=== PATIENT | male | born 1975 | race Hispanic/Latino ===

== ENCOUNTER 2023-02-20 20:51 | Emergency (ER) | payer SELFPAY ==
[2023-02-20] MEDS ORDERED: LIDOCAINE 1% MPF 5 ML VIAL ONE (21:55)
--- NOTE | 2023-02-20 22:02 | ER ---
Nurse's Notes [facility] Name: Davis Odom Age: 48 yrs Sex: Male : 1975 Arrival Date: 02/20/2023 Time: 20:52 Bed 9 Private MD: Diagnosis: Foreign body in stomach Presentation: 02/20 21:52 Chief complaint: Patient states: i was stabbed in the belly by a catfish and the barth vc1 is still stuck in my abdomen. Coronavirus screen: Client denies travel out of the [place] in the last 14 days. At this time, the client does not indicate any symptoms associated with coronavirus-19. Ebola Screen: No symptoms or risks identified at this time. Initial Sepsis Screen: Does the patient meet any 2 criteria? No. Patient's initial sepsis screen is negative. Does the patient have a suspected source of infection? No. Patient's initial sepsis screen is negative. Risk Assessment: Do you want to hurt yourself or someone else? Patient reports no desire to harm self or others. Onset of symptoms was February 20, 2023. 21:52 Method Of Arrival: Ambulatory vc1 21:52 Acuity: SWATHI 4 vc1 Triage Assessment: 21:54 General: Appears in no apparent distress. uncomfortable, Behavior is calm, cooperative. vc1 Pain: Complains of pain in abdomen. EENT: No deficits noted. No signs and/or symptoms were reported regarding the EENT system. Neuro: No deficits noted. Graf Agitation-Sedation Scale (RASS): 0 - Alert and Calm Level of Consciousness is awake, alert, obeys commands, Oriented to person, place, time, situation. Cardiovascular: No deficits noted. Denies chest pain, shortness of breath, Capillary refill < 3 seconds Clubbing of nail beds is absent Patient's skin is warm and dry. Respiratory: No deficits noted. Airway is patent Respiratory effort is even, unlabored, Respiratory pattern is regular, symmetrical. GI: Abdomen is round non-distended, obese. : No deficits noted. No signs and/or symptoms were reported regarding the genitourinary system. Derm: fish spike present in lower umbilical region. Musculoskeletal: No deficits noted. No signs and/or symptoms reported regarding the musculoskeletal system. Circulation, motion, and sensation intact. Range of motion: intact in all extremities. Historical: - Allergies: 21:54 No Known Allergies; vc1 - Home Meds: 21:54 None [Active]; vc1 - PMHx: 21:54 None; vc1 - PSHx: 21:54 None; vc1 - Immunization history:: Adult Immunizations up to date, Client reports having NOT received the Covid vaccine. Last tetanus immunization: unknown. - Social history:: Smoking status: Patient denies any tobacco usage or history of. Patient uses alcohol, occasionally. Screenin:[facility] ED Fall Risk Assessment (Adult) History of falling in the last 3 months, vc1 including since admission No falls in past 3 months (0 pts) Confusion or Disorientation No (0 pts) Intoxicated or Sedated No (0 pts) Impaired Gait No (0 pts) Mobility Assist Device Used No (0 pt) Altered Elimination No (0 pt) Score/Fall Risk Level 0 - 2 = Low Risk Oriented to surroundings, Maintained a safe environment, Educated pt \T\ family on fall prevention, incl call for assistance when getting out of bed. 23:12 Abuse screen: Denies threats or abuse. Nutritional screening: No deficits noted. vc1 Tuberculosis screening: No symptoms or risk factors identified. Vital Signs: 21:52 BP 146 / 101; Pulse 106; Resp 19; Temp 98.6(O); Pulse Ox 99% on R/A; Weight 95.25 kg vc1 (R); Height 5 ft. 6 in. (R); Pain 7/10; 22:30 BP 138 / 94; Pulse 89; Resp 19; Pulse Ox 98% ; vc1 21:52 Body Mass Index 33.89 (95.25 kg, 167.64 cm) vc1 21:52 Pain Scale: Adult vc1 ED Course: 20:52 Patient arrived in ED. [id number] 20:55 Krunal Villarreal MD is Attending Physician. bs3 21:40 CT Abd/Pelvis - Without Contrast In Process Unspecified. EDMS 21:54 Triage completed. vc1 21:54 Arm band placed on right wrist. vc1 23:14 No provider procedures requiring assistance completed. Patient did not have IV access vc1 during this emergency room visit. 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 Exp: vc1 04/28/2024. Lot #: [id number]. } Route: IM; Site: left deltoid; 23:00 Follow up: Response: (VIS) Vaccine information sheet provided today. Questions and/or vc1 concerns addressed. VIS edition date: Jun 28, 2021.; No adverse reaction 22:40 Drug: Ketorolac IM 15 mg Route: IM; Site: right deltoid; vc1 23:00 Follow up: Response: No adverse reaction; Marked relief of symptoms vc1 Medication: 23:14 Vaccine Information Statement (VIS) provided today. Questions and/or concerns vc1 addressed. VIS edition date: June 28, 2021. Outcome: 22:02 Discharge ordered by . bs3 23:14 Discharged to home ambulatory. vc1 23:14 Condition: good 23:14 Discharge instructions given to patient, Instructed on discharge instructions, follow up and referral plans. medication usage, Demonstrated understanding of instructions, follow-up care, medications, Prescriptions given X 1. 23:15 Patient left the ED. vc1 Signatures: Dispatcher [employer] EDNY Xochitl [id number] Kathia Angela, TEVIN RN vc1 Krunal Villarreal MD MD bs3
--- NOTE | 2023-02-20 22:03 | EDPHYS ---
Physician Documentation [facility] Name: Davis Odom Age: 48 yrs Sex: Male : 1975 Arrival Date: 02/20/2023 Time: 20:52 Bed 9 Private MD: ED Physician Krunal Villarreal HPI: 02/20 21:01 This 48 yrs old Male presents to ER via Unassigned with complaints of Foreign bs3 body lodged in abdomen. 21:01 48-year-old male presents with no foreign body to his abdomen he notes that he was bs3 fishing and a fishtail jabbed him in the abdomen he denies any other injuries it happened just prior to arrival he notes moderate discomfort at the area he did cut the tail he is not sure how far it and it went but he thinks it went pretty far. Historical: - Allergies: 21:54 No Known Allergies; vc1 - Home Meds: 21:54 None [Active]; vc1 - PMHx: 21:54 None; vc1 - PSHx: 21:54 None; vc1 - Immunization history:: Adult Immunizations up to date, Client reports having NOT received the Covid vaccine. Last tetanus immunization: unknown. - Social history:: Smoking status: Patient denies any tobacco usage or history of. Patient uses alcohol, occasionally. ROS: 21:01 Constitutional: Negative for fever, chills bs3 21:01 All other systems are negative. Exam: 21:01 Constitutional: This is a well developed, well nourished patient who is awake, alert, bs3 and in no acute distress. Head/Face: Normocephalic, atraumatic. Eyes: Pupils equal round and reactive to light, extra-ocular motions intact. Lids and lashes normal. Neck: Trachea midline, no thyromegaly, no neck stiffness Chest/axilla: Normal chest wall appearance and motion. Nontender with no deformity. No lesions are appreciated. Cardiovascular: Regular rate and rhythm with a normal S1 and S2. symmetric pulses in upper extremities Respiratory: Lungs have equal breath sounds bilaterally, clear to auscultation, no respiratory distress Abdomen/GI: There is a penetrating foreign body in between his pubic symphysis and his umbilicus there is moderate amount of erythema around it small amount of oozing from the wound Vital Signs: 21:52 BP 146 / 101; Pulse 106; Resp 19; Temp 98.6(O); Pulse Ox 99% on R/A; Weight 95.25 kg vc1 (R); Height 5 ft. 6 in. (R); Pain 7/10; 22:30 BP 138 / 94; Pulse 89; Resp 19; Pulse Ox 98% ; vc1 21:52 Body Mass Index 33.89 (95.25 kg, 167.64 cm) vc1 21:52 Pain Scale: Adult vc1 Procedures: 21:59 Foreign Body Removal: a fish bone, from the abdomen, by tweezers, Dressinx4s were bs3 used to dress the wound, The patient tolerated the removal well. MDM: 20:55 Patient medically screened. bs3 21:01 Differential diagnosis: Patient with foreign body will evaluate for penetration through bs3 the peritoneum we will treat pain update tetanus we will give prophylactic antibiotics. Data reviewed: vital signs, nurses notes. 21:59 ED course: CT notable for superficial foreign body in the abdomen the foreign body was bs3 removed without complication by myself tetanus updated will give antibiotic prophylaxis advised return precautions. 22:22 ED course: pt with 1.3cm cyst, advised outpatient f/u with pcp for non emergent mri. bs3 22:30 ED course: outpatient US recommended. 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 Exp: vc1 04/28/2024. Lot #: [id number]. } Route: IM; Site: left deltoid; 23:00 Follow up: Response: (VIS) Vaccine information sheet provided today. Questions and/or vc1 concerns addressed. VIS edition date: Jun 28, 2021.; No adverse reaction 22:40 Drug: Ketorolac IM 15 mg Route: IM; Site: right deltoid; vc1 23:00 Follow up: Response: No adverse reaction; Marked relief of symptoms vc1 Disposition Summary: 02/20/23 22:02 Discharge Ordered Location: Home bs3 Problem: new bs3 Symptoms: have improved bs3 Condition: Stable bs3 Diagnosis - Foreign body in stomach bs3 Followup: bs3 - With: Private Physician - When: 2 - 3 days - Reason: Re-evaluation by your physician Discharge Instructions: - Discharge Summary Sheet bs3 - Skin Foreign Body bs3 Forms: - Medication Reconciliation Form bs3 - Thank You Letter bs3 - Antibiotic Education bs3 - Prescription Opioid Use bs3 Prescriptions: - Doxycycline Hyclate 100 mg Oral Tablet - take 1 tablet by ORAL route once daily; 10 tablet; Refills: 0, Product bs3 Selection Permitted Signatures: Dispatcher [employer] Kathia Marlow RN RN vc1 Krunal Villarreal MD MD bs3
--- NOTE | 2023-02-20 22:19 | RAD REPORT ---
EXAM DESCRIPTION: CT - Abdomen Pelvis Wo Contrast - 02/20/2023 9:38 pm CLINICAL HISTORY: penetrating trauam COMPARISON: No comparisons TECHNIQUE: Thin cut axial CT imaging of the abdomen and pelvis was performed without IV contrast. Mu ltiplanar reformats were generated and reviewed. All CT scans are performed using dose optimization technique as appropriate and may include automated exposure control or mA/KV adjustment according to patient size. FINDINGS: No suspicious findings in the lung bases. The liver demonstrates diffuse parenchymal hypoattenuation suggesting steatosis. Adrenal glands, sple en, and pancreas show no suspicious findings. Gallbladder and biliary tree are also without suspiciou s finding. Exophytic right renal lower pole 1.3 centimeter isodense lesion, not well characterized on this nonco ntrast CT. No evidence of radiopaque calculi or hydroureteronephrosis. No dilated bowel loops or bowel wall thickening. No free air, free fluid or inflammatory stranding. N o hernia, mass or bulky lymphadenopathy. The urinary bladder is without significant finding. No suspicious bony findings. Foreign body along the anterior abdominal wall, with mild adjacent fat stranding in the subcutaneous soft tissues, not reaching the anterior abdominal wall muscles. IMPRESSION: Foreign body along the anterior abdominal wall, with mild adjacent fat stranding in the subcutaneous soft tissues, not reaching the anterior abdominal wall muscles. No other acute findings. Indeterminate right lower renal pole 1.3 centimeters lesion, may represent a hemorrhagic cyst, not we ll characterized on this noncontrast CT. Diffuse hepatic parenchymal hypoattenuation suggesting steat osis.
[2023-02-20] MEDS ORDERED: TETANUS & DIPHTHERIA TOX,ADULT 0.5 ML VIAL ONE (22:36)
[2023-02-20] MEDS ORDERED: KETOROLAC 30 MG/ML INJ ONE (22:36)
[2023-02-20 23:35] VITALS: TEMP 98.6
[2023-02-20 23:37] VITALS: BP 138/94; O2SAT 98
== END 2023-02-20 23:15 | disposition home or self-care (01) ==
LOC: ER 20:51
DX: T18.2XXA Foreign body in stomach, initial encounter (principal); Z23 Encounter for immunization
CPT/HCPCS: 74176; 90471; 90714; 96372; 99283; J2001